=== PATIENT | male | born 1960 | race Caucasian/White ===

== ENCOUNTER 2016-05-10 10:17 | Emergency (ER) | payer OTHER ==
[~2016-05-10] VITALS: Ht 167.6 cm; Wt 86.0 kg
[2016-05-10] MEDS ORDERED: SUMA100T PO (10:20)
[2016-05-10] MEDS ORDERED: ADV100 IH (10:20)
[2016-05-10] MEDS ORDERED: ATOR40TA28 PO (10:20)
[2016-05-10] MEDS ORDERED: LISI-662 PO (10:20)
[2016-05-10 10:35] VITALS: BP 180/98
[2016-05-10] MEDS ORDERED: PERTUSS(ACELL),DIPH,TET VAC/PF 0.5 ML VIAL IM ONE (10:45)
== END 2016-05-10 11:17 | disposition home or self-care (01) ==
LOC: EMS 10:20
DX: S61.211A Laceration without foreign body of left index finger without damage to nail, initial encounter (principal); I10 Essential (primary) hypertension; E78.00 Pure hypercholesterolemia, unspecified; G43.909 Migraine, unspecified, not intractable, without status migrainosus; Z90.49 Acquired absence of other specified parts of digestive tract; W26.0XXA Contact with knife, initial encounter; Y93.89 Activity, other specified; Y92.9 Unspecified place or not applicable; Y99.9 Unspecified external cause status
CPT/HCPCS: 12001; 90471; 90715; 99283